=== PATIENT | female | born 1960 | race Caucasian/White ===

== ENCOUNTER 2018-04-02 21:59 | Observation (INO) | payer OTHER ==
[~2018-04-02] VITALS: Ht 157.5 cm; Wt 79.6 kg
[2018-04-02 22:03] VITALS: Ht 157.5 cm; Wt 79.6 kg
[2018-04-02 23:48] LABS: BASOPHIL % 0.4 % (0-2); PLATELET COUNT 400 x10^3mcL (130-400); RED CELL DISTRIBUTION WIDTH 15.1 % (11.5-14.5)
[2018-04-02 23:56] LABS: CALCIUM 9.3 mg/dL (8.5-10.1); CARBON DIOXIDE 26.9 mmol/L (21-32); CHLORIDE SERUM 100 mmol/L (98-107); GFR1 > 60 mL/min; GLUCOSE SERUM 131 mg/dL (74-106); POTASSIUM SERUM 3.5 mmol/L (3.5-5.1); SODIUM SERUM 139 mmol/L (136-145)
[2018-04-02 23:56] LABS: microscopic required? YES; urine erythrocyte 1+ (NEGATIVE)
[2018-04-02 23:58] LABS: ALBUMIN 3.7 g/dL (3.4-5.0)
[2018-04-03] VITALS (7 sets, daily range): BP systolic 114–152; BP diastolic 61–75
[2018-04-03 00:36] LABS: ALKALINE PHOSPHATASE 76 U/L (46-116); ALT/SGPT 39 U/L (14-59); AST/SGOT 24 U/L (15-37); BILIRUBIN TOTAL 0.1 mg/dL (0.20-1.00); TOTAL PROTEIN, SERUM 7.3 g/dL (6.4-8.2)
[2018-04-03] MEDS ORDERED: METFORMIN HCL500 MG PO (01:02)
[2018-04-03] MEDS ORDERED: HYDROCHLOROTHIA25 MG PO (01:03)
[2018-04-03] MEDS ORDERED: LISINOPRIL40 MG PO (01:03)
[2018-04-03] MEDS ORDERED: ASPIRIN CHILDRE81 MG PO (01:04)
== END 2018-04-03 20:40 | disposition home or self-care (01) | DRG 79 ==
LOC: ED 21:59 → DU 04-03 00:47
PROVIDERS: Emergency Medicine
DX: I67.4 Hypertensive encephalopathy (principal); E11.9 Type 2 diabetes mellitus without complications; Z68.28 Body mass index [BMI] 28.0-28.9, adult; Z79.84 Long term (current) use of oral hypoglycemic drugs
CPT/HCPCS: 82962; G0378; J1650; Q0092